=== PATIENT | male | born 1960 | race Caucasian/White ===

== ENCOUNTER 2018-10-21 20:38 | Emergency (ER) | payer BC, SELFPAY ==
[2018-10-21 20:43] VITALS: BP 127/85; PULSE 80; RESP 20; TEMP 36.8; O2SAT 100
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
[2018-10-21] MEDS: Cephalexin 500 MG CAP PO ×2 (21:43)
== END 2018-10-21 21:45 | disposition home or self-care (01) ==
LOC: ER 21:52
PROVIDERS: Emergency Provider Emergency Medicine
DX: S01.81XA Laceration without foreign body of other part of head, initial encounter (principal); V17.0XXA Pedal cycle driver injured in collision with fixed or stationary object in nontraffic accident, initial encounter
CPT/HCPCS: 12011